=== PATIENT | female | born 1935 | race African-American/Black ===

== ENCOUNTER 2021-10-06 15:38 | Inpatient (IN) | payer BC ==
[2021-10-06] MEDS ORDERED: hydrALAZINE HCL 25 MG TABLET (FP) PO ONE (17:59)
[2021-10-06] MEDS ORDERED: ENALAPRIL MALEATE 10 MG TABLET PO ONE (17:59)
[2021-10-06] MEDS ORDERED: ENALAPRIL MALEATE 5 MG TABLET ONE (18:16)
[2021-10-06] MEDS ORDERED: hydrALAZINE HCL 25 MG TABLET (FP) ONE (18:16)
[2021-10-06 19:03] LABS: BASO % 1.2 % (0-2.0); EOS % 0.7 % (0-4.5); HEMATOCRIT 30.9 % (32.4-45.2); HEMOGLOBIN 10.1 GM/dL (10.7-15.3); LYMPH % 35.1 % (8-40); MCHC 32.9 g/dl (32.0-36.0); MEAN CELL VOLUME 91.1 fl (80-96); MONO % 9.6 % (3.8-10.2); NEUT % 53.4 % (42.8-82.8); PLATELET COUNT 195 10^3/uL (134-434); RBC 3.39 M/mm3 (3.60-5.2); RDW 14.2 % (11.6-15.6); WHITE BLOOD COUNT 3.9 K/mm3 (4.0-10.0)
[2021-10-06 19:13] LABS: EPI CELLS 5 /uL (0-25.1); HYALINE CASTS 0 /uL (0-3.1); PH,URINE 7.5 (5.0-8.0); URINE APPEARANCE CLEAR; URINE BACTERIA 157 /uL (0-1359); URINE BILIRUBIN NEGATIVE (NEGATIVE); URINE COLOR YELLOW; URINE GLUCOSE (UA) NEGATIVE (NEGATIVE); URINE KETONE NEGATIVE (NEGATIVE); URINE LEUK ESTERASE TRACE (NEGATIVE); URINE NITRITE NEGATIVE (NEGATIVE); URINE PROTEIN NEGATIVE (NEGATIVE); URINE UROBILINOGEN 0.2 mg/dL (0.2-1.0); URINE WBC 6 /uL (0-25.8)
[2021-10-06] MEDS ORDERED: ENALAPRILAT DIHYDRATE 1.25 MG/1 ML VIAL IVPB ONE (19:14)
[2021-10-06 19:25] LABS: ALBUMIN 3.2 g/dl (3.4-5.0); CALCIUM 9.6 mg/dL (8.5-10.1)
[2021-10-06 19:26] LABS: BLOOD UREA NITROGEN 18.3 mg/dL (7-18)
[2021-10-06 19:28] LABS: CREATININE 1.1 mg/dL (0.55-1.3)
[2021-10-06 19:30] LABS: BILIRUBIN,TOTAL 0.3 mg/dL (0.2-1); TOT PROT 7.3 g/dl (6.4-8.2)
[2021-10-06] MEDS ORDERED: ACETAMINOPHEN 325 MG TABLET (FP) PO PRN (20:42)
[2021-10-06] MEDS ORDERED: POLYETHYLENE GLYCOL (HEALTHYLAX) 3350 17 GM PACKET PO PRN (20:42)
[2021-10-06 22:04] LABS: URINE RBC 61 /uL (0-23.9)
[2021-10-06] MEDS: INSULIN SLIDING SCALE (NOVOLOG) 1 VIAL SQ SCH (23:58)
[2021-10-07 07:24] LABS: BASO % 0.9 % (0-2.0); EOS % 1.7 % (0-4.5); HEMATOCRIT 30.5 % (32.4-45.2); HEMOGLOBIN 10.2 GM/dL (10.7-15.3); MCH 30.2 pg (25.7-33.7); MCHC 33.5 g/dl (32.0-36.0); MEAN CELL VOLUME 90.2 fl (80-96); MEAN PLT VOLUME 8.8 fl (7.5-11.1); MONO % 13.9 % (3.8-10.2); NEUT % 52.5 % (42.8-82.8); PLATELET COUNT 185 10^3/uL (134-434); RBC 3.38 M/mm3 (3.60-5.2); RDW 14.2 % (11.6-15.6); WHITE BLOOD COUNT 3.7 K/mm3 (4.0-10.0)
[2021-10-07 07:31] LABS: BLOOD UREA NITROGEN 17.9 mg/dL (7-18); CALCIUM 9.2 mg/dL (8.5-10.1)
[2021-10-07 07:34] LABS: CREATININE 1.1 mg/dL (0.55-1.3)
[2021-10-07] MEDS: INSULIN SLIDING SCALE (NOVOLOG) 1 VIAL SQ SCH ×4 (08:25→21:17)
[2021-10-07] MEDS ORDERED: ATENOLOL 50 MG TABLET (FP) PO SCH (10:30)
[2021-10-07] MEDS ORDERED: hydrALAZINE HCL 25 MG TABLET (FP) PO SCH (10:30)
[2021-10-07] MEDS ORDERED: FUROSEMIDE 40 MG TABLET (FP) ONE (12:11)
[2021-10-07] MEDS ORDERED: ENALAPRIL MALEATE 5 MG TABLET ONE (12:11)
[2021-10-07] MEDS: FUROSEMIDE 40 MG TABLET (FP) PO SCH (12:14)
[2021-10-07] MEDS: ENALAPRIL MALEATE 10 MG TABLET PO SCH (12:14)
[2021-10-07] MEDS: ALLOPURINOL 100 MG TABLET (FP) PO SCH (14:07)
[2021-10-07] MEDS ORDERED: amLODIPine BESYLATE 5 MG TABLET (FP) PO ONE (17:14)
[2021-10-07] MEDS ORDERED: amLODIPine BESYLATE 5 MG TABLET (FP) ONE (17:18)
[2021-10-07 21:00] VITALS: BMI 35.3
[2021-10-07] MEDS: hydrALAZINE HCL 25 MG TABLET (FP) PO SCH (21:15)
[2021-10-07] MEDS ORDERED: ROSUVASTATIN CA 20 MG TABLET PO SCH (22:00)
[2021-10-08] MEDS: INSULIN SLIDING SCALE (NOVOLOG) 1 VIAL SQ SCH ×2 (06:53→12:00)
[2021-10-08] MEDS: hydrALAZINE HCL 25 MG TABLET (FP) PO SCH (09:36)
[2021-10-08] MEDS: FUROSEMIDE 40 MG TABLET (FP) PO SCH (09:37)
[2021-10-08] MEDS: ALLOPURINOL 100 MG TABLET (FP) PO SCH (09:37)
[2021-10-08] MEDS: ENALAPRIL MALEATE 10 MG TABLET PO SCH (09:41)
[2021-10-08] MEDS ORDERED: amLODIPine BESYLATE 5 MG TABLET (FP) PO SCH (10:00)
[2021-10-08 14:19] VITALS: BP 149/74; PULSE 61; TEMP 97.5
== END 2021-10-08 18:40 | disposition home or self-care (01) | DRG 305 ==
LOC: JER 15:38 → JERBED 20:42 → OBSVTOIN 10-07 13:49 → J4W 10-07 20:52
PROVIDERS: ADMIT Hospitalist; ATTEND Family Medicine
DX: I16.0 Hypertensive urgency (principal); I24.8 Other forms of acute ischemic heart disease; I10 Essential (primary) hypertension; E11.9 Type 2 diabetes mellitus without complications; D50.9 Iron deficiency anemia, unspecified; M10.9 Gout, unspecified; E78.5 Hyperlipidemia, unspecified; R00.1 Bradycardia, unspecified; I44.0 Atrioventricular block, first degree
CPT/HCPCS: 36415; 71046-TC-FY; 80048; 80053; 81003; 82962; 84484; 85025; 93005; 93010; 99285-25; C9803; G0378; U0003; U0005

== ENCOUNTER 2023-06-28 23:57 | Emergency (ER) | payer BC ==
[2023-06-29 00:05] VITALS: TEMP 98.1; BMI 33.6
[2023-06-29 00:58] LABS: BASO % 0.9 % (0-2.0); HEMATOCRIT 33.8 % (32.4-45.2); HEMOGLOBIN 11.3 GM/dL (10.7-15.3); MCH 30.2 pg (25.7-33.7); MCHC 33.4 g/dl (32.0-36.0); MEAN CELL VOLUME 90.6 fl (80-96); MEAN PLT VOLUME 8.6 fl (7.5-11.1); MONO % 9.4 % (3.8-10.2); NEUT % 60.7 % (42.8-82.8); PLATELET COUNT 246 10^3/uL (134-434); RBC 3.73 M/mm3 (3.60-5.2); RDW 13.5 % (11.6-15.6); WHITE BLOOD COUNT 6.3 K/mm3 (4.0-10.0)
[2023-06-29 01:07] LABS: INR 0.98 (0.83-1.09); PROTHROMBIN TIME (PATIENT) 11.4 SEC (9.7-13.0)
[2023-06-29 01:08] LABS: CREATININE 0.9 mg/dL (0.55-1.3)
[2023-06-29 01:09] LABS: ACTIVATED PTT 32.3 SECONDS (25.2-36.5); TOT PROT 11.1 g/dl (6.4-8.2)
[2023-06-29 01:12] LABS: N-TERMINAL BNP 482.2 pg/ml (5-450)
[2023-06-29] MEDS ORDERED: hydrALAZINE HCL 25 MG TABLET (FP) PO ONE (01:53)
[2023-06-29] MEDS ORDERED: hydrALAZINE HCL 25 MG TABLET (FP) ONE (01:57)
[2023-06-29 02:01] VITALS: BP 171/63; PULSE 61; RESP 18
[2023-06-29 02:34] LABS: BILIRUBIN,TOTAL 0.2 mg/dL (0.2-1); CALCIUM 9.3 mg/dL (8.5-10.1)
== END 2023-06-29 03:12 | disposition home or self-care (01) ==
LOC: JER 23:57
DX: I10 Essential (primary) hypertension (principal)
CPT/HCPCS: 36415; 71046-TC-FY; 80053; 83880; 84484; 85025; 85610; 85730; 93005; 93010; 99285-25

== ENCOUNTER 2023-09-12 08:39 | Emergency (ER) | payer BC ==
[2023-09-12 08:44] VITALS: BP 125/71; PULSE 72; RESP 18; TEMP 98.7; BMI 32.1
[2023-09-12 11:29] LABS: EOS % 0.3 % (0-4.5); HEMATOCRIT 30.7 % (32.4-45.2); HEMOGLOBIN 10.4 GM/dL (10.7-15.3); LYMPH % 20.4 % (8-40); MCH 31.1 pg (25.7-33.7); MCHC 33.9 g/dl (32.0-36.0); MEAN CELL VOLUME 91.7 fl (80-96); MEAN PLT VOLUME 8.3 fl (7.5-11.1); MONO % 5.9 % (3.8-10.2); NEUT % 72.4 % (42.8-82.8); PLATELET COUNT 227 10^3/uL (134-434); RBC 3.35 M/mm3 (3.60-5.2); WHITE BLOOD COUNT 4.7 K/mm3 (4.0-10.0)
[2023-09-12 11:46] LABS: INR 1.03 (0.83-1.09); PROTHROMBIN TIME (PATIENT) 11.9 SEC (9.7-13.0)
[2023-09-12 11:48] LABS: ACTIVATED PTT 31.8 SECONDS (25.2-36.5); POTASSIUM 3.7 mmol/L (3.5-5.1)
[2023-09-12 11:51] LABS: ALBUMIN 3.1 g/dl (3.4-5.0); BLOOD UREA NITROGEN 24.6 mg/dL (7-18); CALCIUM 9.2 mg/dL (8.5-10.1)
[2023-09-12 11:52] LABS: MAGNESIUM 1.5 mg/dL (1.8-2.4)
[2023-09-12 11:54] LABS: PHOSPHOROUS 3.1 mg/dL (2.5-4.9)
[2023-09-12 11:55] LABS: CREATININE 1.3 mg/dL (0.55-1.3); TOT PROT 7.4 g/dl (6.4-8.2)
[2023-09-12 11:56] LABS: BILIRUBIN,TOTAL 0.3 mg/dL (0.2-1)
[2023-09-12] MEDS ORDERED: MAGNESIUM OXIDE 400 MG TABLET (FP) ONE (12:20)
[2023-09-12] MEDS: MAGNESIUM OXIDE 400 MG TABLET (FP) PO ONE (12:25)
== END 2023-09-12 15:18 | disposition home or self-care (01) ==
LOC: JER 08:39
DX: R05.9 Cough, unspecified (principal); R04.0 Epistaxis; R42 Dizziness and giddiness; R04.2 Hemoptysis; Z20.822 Contact with and (suspected) exposure to COVID-19
CPT/HCPCS: 0241U-QW; 36415; 71275-TC; 80053; 83735; 84100; 84484; 85025; 85610; 85730; 86850; 86900; 86901; 93005; 93010; 99285-25

== ENCOUNTER 2024-04-14 23:58 | Observation (INO) | payer BC ==
[2024-04-15 01:02] LABS: HEMATOCRIT 31.3 % (32.4-45.2); HEMOGLOBIN 10.4 GM/dL (10.7-15.3); MCH 30.4 pg (25.7-33.7); MCHC 33.3 g/dl (32.0-36.0); MEAN CELL VOLUME 91.2 fl (80-96); MEAN PLT VOLUME 7.8 fl (7.5-11.1); PLATELET COUNT 215 10^3/uL (134-434); RBC 3.43 M/mm3 (3.60-5.2); RDW 14.5 % (11.6-15.6); WHITE BLOOD COUNT 5.8 K/mm3 (4.0-10.0)
[2024-04-15 01:16] LABS: POTASSIUM 3.9 mmol/L (3.5-5.1)
[2024-04-15 01:18] LABS: ALBUMIN 3.5 g/dl (3.4-5.0); CALCIUM 9.2 mg/dL (8.5-10.1)
[2024-04-15 01:19] LABS: BLOOD UREA NITROGEN 24.4 mg/dL (7-18)
[2024-04-15 01:22] LABS: CREATININE 1.4 mg/dL (0.55-1.3)
[2024-04-15 01:23] LABS: BILIRUBIN,TOTAL 0.3 mg/dL (0.2-1); TOT PROT 7.4 g/dl (6.4-8.2)
[2024-04-15 02:44] LABS: EPI CELLS 4 /uL (0-25.1); HYALINE CASTS 0 /uL (0-3.1); URINE APPEARANCE CLEAR; URINE BACTERIA 87 /uL (0-1359); URINE BILIRUBIN NEGATIVE (NEGATIVE); URINE COLOR YELLOW; URINE GLUCOSE (UA) NEGATIVE (NEGATIVE); URINE KETONE NEGATIVE (NEGATIVE); URINE LEUK ESTERASE 1+ (NEGATIVE); URINE NITRITE NEGATIVE (NEGATIVE); URINE PROTEIN NEGATIVE (NEGATIVE); URINE RBC 6 /uL (0-23.9); URINE UROBILINOGEN 0.2 mg/dL (0.2-1.0); URINE WBC 23 /uL (0-25.8)
[2024-04-15] MEDS ORDERED: SULFAMETHOXAZOLE/TRIMETHOPRIM 800MG/160MG D.S. TABLET ONE (03:26)
[2024-04-15] MEDS: SULFAMETHOXAZOLE/TRIMETHOPRIM 800MG/160MG D.S. TABLET PO ONE (03:30)
[2024-04-15] MEDS ORDERED: DOCUSATE SODIUM 100 MG CAPSULE (FP) PO PRN (05:05)
[2024-04-15] MEDS ORDERED: ACETAMINOPHEN 325 MG TABLET (FP) PO PRN (05:05)
[2024-04-15] MEDS: hydrALAZINE HCL 50 MG TABLET (FP) PO SCH (06:20)
[2024-04-15 08:22] LABS: INR 0.95 (0.83-1.09); PROTHROMBIN TIME (PATIENT) 10.8 SEC (9.7-13.0)
[2024-04-15] MEDS ORDERED: hydrALAZINE HCL 25 MG TABLET (FP) PO SCH (10:00)
[2024-04-15] MEDS: LISINOPRIL 20 MG TABLET PO SCH (10:37)
[2024-04-15] MEDS: ROSUVASTATIN CA 20 MG TABLET PO SCH (10:38)
[2024-04-15] MEDS: FERROUS SO4 325 MG TABLET (FP) PO SCH (10:38)
[2024-04-15] MEDS: PANTOPRAZOLE 40 MG TABLET PO SCH (10:38)
[2024-04-15] MEDS: CEFTRIAXONE 1 GM in DEXTROSE 5%-WATER - 50 ML IVPB SCH (10:38)
[2024-04-15] MEDS: FUROSEMIDE 40 MG TABLET (FP) PO SCH (10:38)
[2024-04-15 13:55] VITALS: BMI 15.2
[2024-04-15 15:58] LABS: EPI CELLS 12 /uL (0-25.1); HYALINE CASTS 0 /uL (0-3.1); URINE APPEARANCE CLEAR; URINE BACTERIA 451 /uL (0-1359); URINE BILIRUBIN NEGATIVE (NEGATIVE); URINE COLOR YELLOW; URINE GLUCOSE (UA) NEGATIVE (NEGATIVE); URINE KETONE NEGATIVE (NEGATIVE); URINE LEUK ESTERASE 2+ (NEGATIVE); URINE NITRITE NEGATIVE (NEGATIVE); URINE PROTEIN NEGATIVE (NEGATIVE); URINE RBC 4 /uL (0-23.9); URINE UROBILINOGEN 0.2 mg/dL (0.2-1.0); URINE WBC 58 /uL (0-25.8)
[2024-04-16 07:09] VITALS: PULSE 71
[2024-04-16 08:24] LABS: HEMATOCRIT 29.4 % (32.4-45.2); HEMOGLOBIN 9.8 GM/dL (10.7-15.3); MCH 30.7 pg (25.7-33.7); MCHC 33.3 g/dl (32.0-36.0); MEAN CELL VOLUME 92.3 fl (80-96); PLATELET COUNT 201 10^3/uL (134-434); POTASSIUM 4.1 mmol/L (3.5-5.1); RBC 3.19 M/mm3 (3.60-5.2); RDW 14.4 % (11.6-15.6)
[2024-04-16 08:26] LABS: BASO % 0.8 % (0-2.0); EOS % 1.5 % (0-4.5); HEMATOCRIT 29.9 % (32.4-45.2); HEMOGLOBIN 9.8 GM/dL (10.7-15.3); MCH 30.5 pg (25.7-33.7); MCHC 32.9 g/dl (32.0-36.0); MEAN CELL VOLUME 92.8 fl (80-96); MONO % 12.5 % (3.8-10.2); NEUT % 60.2 % (42.8-82.8); PLATELET COUNT 200 10^3/uL (134-434); RBC 3.23 M/mm3 (3.60-5.2); WHITE BLOOD COUNT 3.9 K/mm3 (4.0-10.0)
[2024-04-16 08:30] LABS: CALCIUM 9.2 mg/dL (8.5-10.1)
[2024-04-16 08:31] LABS: ALBUMIN 2.9 g/dl (3.4-5.0); BLOOD UREA NITROGEN 20.5 mg/dL (7-18)
[2024-04-16 08:32] LABS: MAGNESIUM 2.1 mg/dL (1.8-2.4)
[2024-04-16 08:33] LABS: CREATININE 1.4 mg/dL (0.55-1.3)
[2024-04-16 08:35] LABS: BILIRUBIN,TOTAL 0.6 mg/dL (0.2-1); TOT PROT 6.5 g/dl (6.4-8.2)
[2024-04-16 09:24] VITALS: RESP 18
[2024-04-16 14:21] VITALS: BP 148/60; TEMP 97.9
== END 2024-04-16 15:48 | disposition home or self-care (01) ==
LOC: JER 23:58 → JERBED 04-15 03:06 → J4S 04-15 06:15
PROVIDERS: ADMIT Internal Medicine; ATTEND Family Medicine
DX: N39.0 Urinary tract infection, site not specified (principal); D64.9 Anemia, unspecified; I16.0 Hypertensive urgency; E11.9 Type 2 diabetes mellitus without complications; M10.9 Gout, unspecified; R35.0 Frequency of micturition; R00.1 Bradycardia, unspecified
CPT/HCPCS: 0241U-QW; 36415; 71045-TC-FY; 80048; 80053; 81003; 82962; 83735; 84100; 84484; 85025; 85027; 85610; 85730; 93005; 93010; 96365; 97116-GP; 97161-GP; 99285-25; G0378

== ENCOUNTER 2024-06-03 19:39 | Emergency (ER) | payer BC ==
[2024-06-03 19:53] VITALS: TEMP 98.3; BMI 33.5
[2024-06-03 20:40] LABS: BASO % 0.8 % (0-2.0); EOS % 0.6 % (0-4.5); HEMATOCRIT 31.1 % (32.4-45.2); HEMOGLOBIN 10.2 GM/dL (10.7-15.3); LYMPH % 33.2 % (8-40); MCH 30.5 pg (25.7-33.7); MCHC 32.9 g/dl (32.0-36.0); MEAN CELL VOLUME 92.7 fl (80-96); MEAN PLT VOLUME 7.8 fl (7.5-11.1); MONO % 13.7 % (3.8-10.2); NEUT % 51.7 % (42.8-82.8); PLATELET COUNT 201 10^3/uL (134-434); RBC 3.36 M/mm3 (3.60-5.2); RDW 13.9 % (11.6-15.6); WHITE BLOOD COUNT 4.8 K/mm3 (4.0-10.0)
[2024-06-03 21:47] VITALS: BP 179/62; PULSE 58; RESP 16
[2024-06-03 21:47] LABS: POTASSIUM 3.8 mmol/L (3.5-5.1)
[2024-06-03 21:49] LABS: CALCIUM 9.1 mg/dL (8.5-10.1)
[2024-06-03 21:50] LABS: ALBUMIN 3.4 g/dl (3.4-5.0); MAGNESIUM 1.9 mg/dL (1.8-2.4)
[2024-06-03 21:53] LABS: CREATININE 1.5 mg/dL (0.55-1.3)
[2024-06-03 21:54] LABS: BILIRUBIN,TOTAL 0.2 mg/dL (0.2-1); TOT PROT 7.3 g/dl (6.4-8.2)
== END 2024-06-03 22:03 | disposition home or self-care (01) ==
LOC: JER 19:39
DX: I10 Essential (primary) hypertension (principal); M79.605 Pain in left leg
CPT/HCPCS: 36415; 80053; 82962; 83735; 85025; 93005; 93010; 99284-25

== ENCOUNTER 2024-06-04 01:46 | Observation (INO) | payer BC ==
[2024-06-04 01:53] VITALS: BMI 24.4
[2024-06-04 02:54] LABS: INR 0.99 (0.83-1.09); PROTHROMBIN TIME (PATIENT) 11.2 SEC (9.7-13.0)
[2024-06-04 02:56] LABS: ACTIVATED PTT 36.2 SECONDS (25.2-36.5)
[2024-06-04] MEDS ORDERED: ASPIRIN 81 MG CHEWABLE TABLETS ONE (03:23)
[2024-06-04] MEDS: ASPIRIN 81 MG CHEWABLE TABLETS PO ONE (03:30)
[2024-06-04] MEDS ORDERED: LISINOPRIL 20 MG TABLET ONE (05:04)
[2024-06-04] MEDS: LISINOPRIL 20 MG TABLET PO ONE (05:13)
[2024-06-04] MEDS ORDERED: DOCUSATE SODIUM 100 MG CAPSULE (FP) PO PRN (06:09)
[2024-06-04] MEDS: FUROSEMIDE 40 MG TABLET (FP) PO SCH (10:22)
[2024-06-04] MEDS: NIFEdipine E.R. 30 MG TABLET PO SCH (10:22)
[2024-06-04] MEDS: PANTOPRAZOLE 40 MG TABLET PO SCH (10:22)
[2024-06-04] MEDS: FERROUS SO4 325 MG TABLET (FP) PO SCH (10:22)
[2024-06-04 10:27] LABS: BASO % 0.6 % (0-2.0); EOS % 0.9 % (0-4.5); HEMATOCRIT 29.6 % (32.4-45.2); HEMOGLOBIN 9.9 GM/dL (10.7-15.3); LYMPH % 32.7 % (8-40); MCH 30.6 pg (25.7-33.7); MCHC 33.3 g/dl (32.0-36.0); MEAN CELL VOLUME 91.9 fl (80-96); MEAN PLT VOLUME 8.3 fl (7.5-11.1); MONO % 12.5 % (3.8-10.2); NEUT % 53.3 % (42.8-82.8); PLATELET COUNT 191 10^3/uL (134-434); RBC 3.22 M/mm3 (3.60-5.2); RDW 13.6 % (11.6-15.6); WHITE BLOOD COUNT 3.5 K/mm3 (4.0-10.0)
[2024-06-04 11:22] LABS: POTASSIUM 4.2 mmol/L (3.5-5.1)
[2024-06-04 11:24] LABS: CALCIUM 8.9 mg/dL (8.5-10.1)
[2024-06-04 11:25] LABS: ALBUMIN 3.1 g/dl (3.4-5.0); BLOOD UREA NITROGEN 20.3 mg/dL (7-18)
[2024-06-04 11:28] LABS: CREATININE 1.3 mg/dL (0.55-1.3)
[2024-06-04 11:29] LABS: BILIRUBIN,TOTAL 0.3 mg/dL (0.2-1)
[2024-06-04] MEDS: hydrALAZINE HCL 50 MG TABLET (FP) PO SCH (14:07)
[2024-06-04] MEDS: ROSUVASTATIN CA 10 MG TABLET PO SCH (22:22)
[2024-06-05 08:36] LABS: BASO % 0.6 % (0-2.0); EOS % 0.8 % (0-4.5); HEMATOCRIT 30.5 % (32.4-45.2); HEMOGLOBIN 10.2 GM/dL (10.7-15.3); LYMPH % 40.5 % (8-40); MCH 30.8 pg (25.7-33.7); MCHC 33.4 g/dl (32.0-36.0); MEAN CELL VOLUME 92.4 fl (80-96); MONO % 10.2 % (3.8-10.2); NEUT % 47.9 % (42.8-82.8); PLATELET COUNT 196 10^3/uL (134-434); RDW 13.3 % (11.6-15.6); WHITE BLOOD COUNT 3.7 K/mm3 (4.0-10.0)
[2024-06-05 08:56] VITALS: BP 125/50; PULSE 66; RESP 16; TEMP 97.9
[2024-06-05] MEDS ORDERED: LISINOPRIL 20 MG TABLET PO SCH (10:00)
== END 2024-06-05 10:35 | disposition home or self-care (01) ==
LOC: JER 01:46 → JERBED 03:16 → J4S 07:20
PROVIDERS: ADMIT Family Medicine; ATTEND Family Medicine
DX: I24.89 Other forms of acute ischemic heart disease (principal); E11.9 Type 2 diabetes mellitus without complications; I16.0 Hypertensive urgency; M10.9 Gout, unspecified; D64.9 Anemia, unspecified
CPT/HCPCS: 36415; 70450-TC; 71045-TC-FY; 80053; 80061; 84443; 84484; 85025; 85610; 85730; 93005; 93010; 99285-25; G0378